=== PATIENT | male | born 1990 | race Two or more races ===

== ENCOUNTER 2016-08-03 19:28 | Emergency (ER) | payer SELFPAY ==
--- NOTE | 2016-08-03 21:23 | ER Document Report ---
ED Medical Screen (RME) - General TRAVEL OUTSIDE OF THE [place] IN LAST 30 DAYS: No <IDALIA MACK - Last Filed: 08/03/16 21:27> <CAROLYNN SUMMERS - Last Filed: 08/04/16 04:06> - General Stated Complaint: CHEST PAIN Notes: Patient seen on Saturday for the same symptoms. Final diagnosis was chest pain of unclear cause. Patient reports he feels like something is crawling up and down in his esophagus. Was prescribed naproxen but it is not helping with his symptoms. Does report shortness of breath. Denies history of asthma. No family history of early cardiac events. Denies burning sensation or reflux. I have greeted and performed a rapid initial assessment of this patient. A comprehensive ED assessment and evaluation of the patient, analysis of test results and completion of the medical decision making process will be conducted by additional ED providers. (IDALIA MACK) - Related Data Allergies/Adverse Reactions: No Known Allergies Allergy (Verified 08/03/16 21:23) Past Medical History Renal/ Medical History: Denies: Hx Peritoneal Dialysis <IDALIA MACK - Last Filed: 08/03/16 21:27> Physical Exam - Cardiovascular Rhythm: Regular Heart sounds: Normal auscultation <IDLAIA MACK - Last Filed: 08/03/16 21:27> Course - Laboratory Result Diagrams: 08/04/16 02:14 08/04/16 02:14 <CAROLYNN SUMMERS - Last Filed: 08/04/16 04:06> - Vital Signs Vital signs: Temp Pulse Resp BP Pulse Ox 99.1 F 61 16 146/83 H 99 08/03/16 20:48 08/03/16 20:48 08/03/16 20:48 08/03/16 20:48 08/03/16 20:48 - Laboratory Laboratory results interpreted by me: 08/04/16 02:14 WBC 10.6 H RBC 5.58 H Doctor's Discharge <IDALIA MACK - Last Filed: 08/03/16 21:27> <CAROLYNN SUMMERS - Last Filed: 08/04/16 04:06> - Discharge Clinical Impression: Chest pain Qualifiers: Chest pain type: other chest pain Qualified Code(s): R07.89 - Other chest pain Condition: Stable Disposition: HOME, SELF-CARE Instructions: Chest Pain of Unclear Cause ([facility]), Reflux Disease (GERD) ([facility]) Additional Instructions: Take medications as prescribed. Drink plenty fluids to stay well hydrated. Follow-up with primary physician for ongoing evaluation - we have provided you with follow-up information for a GI specialist as from your symptoms tonight it seems that he may be a candidate for endoscopy to further evaluate for possible stricture or esophageal spasm.. Return to emergency department for fevers, vomiting so not to keep down fluids, recurrent/worsening chest pain, difficulty breathing, or other worsening or concerning symptoms. Prescriptions: Famotidine [Pepcid 40 mg Tablet] 40 mg PO QAM 30 Days Referrals: LISA JACOB MD [ACTIVE STAFF] - Follow up in 3-5 days Print Language: Korean
--- NOTE | 2016-08-04 02:02 | ER Document Report ---
ED General - General Time seen by provider: 02:00 Mode of Arrival: Ambulatory Information source: Patient, Friend - patient's friend translates TRAVEL OUTSIDE OF THE [place] IN LAST 30 DAYS: No - HPI Onset: Other - see HPI note <WILL CHEUNG - Last Filed: 08/04/16 03:14> <KRISTOPHERCAROLYNN - Last Filed: 08/04/16 03:57> - General Chief Complaint: Chest Pain Stated Complaint: CHEST PAIN Notes: Patient is a 26 year old male presenting to the emergency department for some discomfort in his esophagus. Patient only speaks Urdu and brought his friend' s to translate for him. Patient was asked if he would like to have a training mgr from the hospital but patient states he feels comfortable translating via his friend's and refused using an [facility] training mgr. Patient states that he feels like something is "crawling up and down his esophagus." Patient was evaluated in the ED for some chest discomfort on Saturday and after he was discharged the discomfort in his esophagus started. Patient started taking Naprosyn which was prescribed to him in the ED on Saturday. Patient states this discomfort is present all the time and is not exacerbated with food. Patient took some pepto-bismal this morning which did not provide any relief. Patient also has felt somewhat lightheaded and nauseated at work. Patient also complains of a sore throat. Patient denies any recent sick contacts , vomiting, diarrhea, fever, or cold/flu symptoms. Patient denies any smoking or drinking EtOH. Patient has no other medical history and states he is generally healthy. Patient denies any recent travel and has lived in this area for the past 7 years. (WILL CHEUNG) - Related Data Allergies/Adverse Reactions: No Known Allergies Allergy (Verified 08/03/16 21:23) Past Medical History - General Information source: Patient, Friend - patinet's friend translates - Social History Smoking Status: Never Smoker Cigarette use (# per day): No Chew tobacco use (# tins/day): No Frequency of alcohol use: None Drug Abuse: None Family History: None - Medical History Medical History: Negative Surgical Hx: Negative <WILL CHEUNG - Last Filed: 08/04/16 03:14> Review of Systems - Review of Systems Constitutional: No symptoms reported EENT: See HPI, Throat pain Cardiovascular: No symptoms reported Respiratory: See HPI Gastrointestinal: See HPI, Nausea. denies: Diarrhea, Vomiting Genitourinary: No symptoms reported Male Genitourinary: No symptoms reported Musculoskeletal: No symptoms reported Skin: No symptoms reported Hematologic/Lymphatic: No symptoms reported Neurological/Psychological: No symptoms reported -: Yes All other systems reviewed and negative <WILL CHEUNG - Last Filed: 08/04/16 03:14> Physical Exam - Vital signs Interpretation: Normal - General General appearance: Appears well, Alert In distress: Mild - HEENT Head: Normocephalic, Atraumatic Eyes: Normal Pupils: PERRL Mucous membranes: Moist - Respiratory Respiratory status: No respiratory distress Chest status: Nontender Breath sounds: Normal Chest palpation: Normal - Cardiovascular Rhythm: Regular Heart sounds: Normal auscultation Murmur: No - Abdominal Inspection: Normal Distension: No distension Bowel sounds: Normal Tenderness: Nontender Organomegaly: No organomegaly - Back Back: Normal, Nontender - Extremities General upper extremity: Normal inspection, Normal ROM, Normal strength General lower extremity: Normal inspection, Normal ROM, Normal strength - Neurological Neuro grossly intact: Yes Cognition: Normal Orientation: AAOx4 [place] Coma Scale Eye Opening: Spontaneous [place] Coma Scale Verbal: Oriented [place] Coma Scale Motor: Obeys Commands [place] Coma Scale Total: 15 Speech: Normal - Psychological Associated symptoms: Normal affect, Normal mood - Skin Skin Temperature: Warm Skin Moisture: Dry <WILL CHEUNG - Last Filed: 08/04/16 03:14> Course - Laboratory Result Diagrams: 08/04/16 02:14 08/04/16 02:14 <WILL CHEUNG - Last Filed: 08/04/16 03:14> - Laboratory Result Diagrams: 08/04/16 02:14 08/04/16 02:14 - Diagnostic Test Radiology reviewed: Reports reviewed - No acute findings. <CAROLYNN SUMMERS - Last Filed: 08/04/16 03:57> - Re-evaluation Re-evalutation: 08/04/16 02:14 Patient presents complaining of intermittent discomfort in his esophagus. He has a sensation of something moving up and down the esophagus. He was seen here on Saturday for pleuritic chest pain and Naprosyn. The discomfort in esophagus has started since he started taking the Naprosyn. The patient denies any other medical history. States he is generally healthy. No h/o CAD, HTN, DM, hypercholesterolemia. On exam, patient alert and oriented in no acute distress vital signs are stable patient is afebrile nontoxic appearing. Chest sounds are clear and equal bilaterally. Heart rate and rhythm regular without murmurs. Abdomen soft and nontender. Medical decision making: The patient symptoms are likely related to reflux. Patient does not use alcohol. He is nonsmoker. Patient is low risk for cardiac disease. EKG and chest x-ray are unremarkable. Review of labs and EKG from 3 days ago reveal no abnormalities. Troponin was negative at that time. Will treat with GI cocktail and Pepcid to see if this helps provide some relief. We'll check basic labs. 08/04/16 02:20 08/04/16 03:56 Patient's labs are unremarkable. We will discharge patient home on Pepcid and have him follow-up with PCP. (CAROLYNN SUMMERS) - Vital Signs Vital signs: Temp Pulse Resp BP Pulse Ox 99.1 F 61 16 146/83 H 99 08/03/16 20:48 08/03/16 20:48 08/03/16 20:48 08/03/16 20:48 08/03/16 20:48 - Laboratory Laboratory results interpreted by me: 08/04/16 02:14 WBC 10.6 H RBC 5.58 H - EKG Interpretation by Me Additional EKG results interpreted by me: 08/04/16 02:14 Heart rate 70, normal axis, normal intervals, early repolarization pattern is present, as interpreted by me. Compared with EKG of 07/31/16, no change. (CAROLYNN SUMMERS) Discharge <WILL CHEUNG - Last Filed: 08/04/16 03:14> <CAROLYNN SUMMERS - Last Filed: 08/04/16 03:57> - Discharge Clinical Impression: Chest pain Qualifiers: Chest pain type: other chest pain Qualified Code(s): R07.89 - Other chest pain Condition: Stable Disposition: HOME, SELF-CARE Instructions: Reflux Disease (GERD) ([facility]), Chest Pain of Unclear Cause ([facility]) Additional Instructions: Take medications as prescribed. Drink plenty fluids to stay well hydrated. Follow-up with primary physician for ongoing evaluation - has specialist follow- up with GI may be necessary if symptoms did not improve. Return to emergency department for fevers, vomiting so not to keep down fluids, recurrent/worsening chest pain, difficulty breathing, or other worsening or concerning symptoms. Prescriptions: Famotidine [Pepcid 40 mg Tablet] 40 mg PO QAM 30 Days Scribe Documentation - Scribe Written by Scribe:: Will Cheung 08/04/16 3:30 acting as scribe for :: Baldwin <WILL CHEUNG - Last Filed: 08/04/16 03:14>
[2016-08-04] MEDS ORDERED: FAMOTIDINE INJ/PF 20 MG/2 ML SDV IV ONE (02:07)
[2016-08-04] MEDS ORDERED: LIDOCAINE 2% VISCOUS SOLN 20 ML UDCUP PO ONE (02:08)
[2016-08-04] MEDS ORDERED: MAG HYDROX/AL HYDROX/SIMETH SUSP 30 ML UDCUP PO ONE (02:08)
[2016-08-04] MEDS ORDERED: METOCLOPRAMIDE HCL ORAL SOLN 10 MG/10 ML UDCUP PO ONE (02:08)
[2016-08-04 02:24] LABS: ABSOLUTE LYMPHOCYTES (AUTO) 3.1 10^3/uL (0.5-4.7); ABSOLUTE MONOCYTES (AUTO) 0.7 10^3/uL (0.1-1.4); ABSOLUTE NEUT (AUTO) 6.8 10^3/uL (1.7-8.2); BASOPHILS % (AUTO) 0.4 % (0-2); EOSINOPHILS % (AUTO) 0.3 % (0-6); HEMOGLOBIN 16.7 g/dL (13.5-17.0); HGB HCT DIFFERENCE 1.1; LYMPHOCYTES % (AUTO) 28.9 % (13-45); MEAN CORPUSCULAR HGB CONC 34.2 g/dL (32.0-36.0); MEAN CORPUSCULAR VOLUME 88 fl (80-97); MONOCYTES % (AUTO) 6.6 % (3-13); RED BLOOD COUNT 5.58 10^6/uL (4.35-5.55); RED CELL DISTRIBUTION WIDTH 13.2 % (11.5-14.0); SEGMENTED NEUTROPHILS % (AUTO) 63.8 % (42-78); WHITE BLOOD COUNT 10.6 10^3/uL (4.0-10.5)
[2016-08-04 02:41] LABS: ALANINE AMINOTRANSFERASE 34 U/L (21-72); ALBUMIN 4.5 g/dL (3.5-5.0); ALKALINE PHOSPHATASE 93 U/L (38-126); ANION GAP 15 (5-19); ASPARTATE AMINO TRANSFERASE 22 U/L (17-59); BILIRUBIN,TOTAL 0.6 mg/dL (0.2-1.3); BLOOD UREA NITROGEN 18 mg/dL (7-20); CALCIUM 9.6 mg/dL (8.4-10.2); CARBON DIOXIDE 25 mmol/L (22-30); CHLORIDE 102 mmol/L (98-107); CREATININE RESULT 0.86 mg/dL (0.52-1.25); GLUCOSE 88 mg/dL (75-110); POTASSIUM 4.3 mmol/L (3.6-5.0); SODIUM 141.6 mmol/L (137-145); TOTAL PROTEIN 7.4 g/dL (6.3-8.2)
[2016-08-04 04:15] VITALS: BP 146/91
--- NOTE | 2016-08-04 16:10 | EKG REPORT ---
SEVERITY:- NORMAL ECG - SINUS RHYTHM ST ELEV, PROBABLE NORMAL EARLY REPOL PATTERN : Confirmed by: Edwige Hayes MD 04-Aug-2016 16:08:48
== END 2016-08-04 04:13 | disposition home or self-care (01) ==
LOC: ER 19:28
DX: R07.89 Other chest pain (principal); R19.8 Other specified symptoms and signs involving the digestive system and abdomen; R42 Dizziness and giddiness; R11.0 Nausea; J02.9 Acute pharyngitis, unspecified
CPT/HCPCS: 93005; 99285; 96374; 36415; 85025; 80053; 84484; 71020; 93010; J3490; S0028